=== PATIENT | male | born 1950 ===

== ENCOUNTER 2017-05-14 08:02 | Day surgery (SDC) | payer MEDICARE, OTHER ==
[2017-05-11 10:46] VITALS: BMI 30.5
--- NOTE | 2017-05-13 20:44 | HP ---
DATE: 05/13/2017 REASON FOR ADMISSION: Left heart cath, possible angioplasty, abnormal stress with chest pain. BRIEF CLINICAL HISTORY: This is a 66-year-old male with past medical history significant for atrial fibrillation status post radiofrequency ablation failed, complaining of chest pain, dyspnea on exertion. The patient underwent stress test that was abnormal, so the patient is scheduled elective cardiac cath, possible angioplasty. PAST MEDICAL HISTORY: Significant for hypothyroidism, obesity, atrial fibrillation, status post radiofrequency ablation failed, the patient reverted back to atrial fibrillation. CURRENT MEDICATION: The patient is taking levothyroxine 50 mg daily, vitamin D, atorvastatin 10 mg daily, apixaban 2.5 mg daily, nitroglycerin, and cyanocobalamin. RECENT CARDIAC WORKUP: As follows. The patient had echocardiography done does show no PE, no vegetation, no thrombus, ejection fraction 35% to 40%, 4-chamber dilatation consistent with CMP, mild mitral regurgitation, [id number] tricuspid regurgitation, systolic pressure 58 mmHg. The patient had a stress test dated 04/19/2017, that showed small reversible ischemia anteroseptal ejection fraction 50%. REVIEW OF SYSTEMS: As per HPI. PHYSICAL EXAMINATION VITAL SIGNS: Height of the patient is 6 feet, weight of the patient is 225 pounds, body mass 30.4 kg/m2. Temperature afebrile, heart rate 80, blood pressure 130/88. HEENT: PERRLA intact. NECK: Supple. No carotid bruit or thyromegaly. CHEST: Clear to auscultation. HEART: S1 and S2 regular. ABDOMEN: Soft. EXTREMITIES: Clubbing and cyanosis negative. IMPRESSION: Atrial fibrillation, abnormal stress test, mitral regurgitation, cardiomyopathy, 4-chamber dilatation, anterior wall ischemia, mild mitral regurgitation, [id number] tricuspid regurgitation, pulmonary hypertension and right ventricular systolic pressure 56. RECOMMENDATION: cardiac catheterization. Risks, benefits, and alternative discussed with the patient. The patient agreed to proceed with cardiac catheterization. Further recommendation after cardiac catheterization. We will load aspirin and Plavix. If the blood work is within normal limits, we will proceed for cardiac catheterization. Nadia Cormier MD [facility] # [phone]
[2017-05-14 08:33] LABS: BASO # 0.04 K/mm3 (0.0-2.0); BASO % 0.6 % (0.0-3.0); EOS # 0.2 (0.0-0.7); GRAN # 3.9 (1.4-6.5); GRAN % 58.9 % (50.0-68.0); HEMATOCRIT 37.3 % (42.0-52.0); LYMPH # 1.9 (1.2-3.4); MEAN CELL VOLUME 93.7 fl (80.0-105.0); MEAN CORPUSCULAR HEMOGLOBIN 30.9 pg (25.0-35.0); MEAN PLATELET VOLUME 10.8 fl (7.0-11.0); MONO # 0.6 (0.1-0.6); MONO % 8.5 % (1.0-6.0); RED CELL DISTRIBUTION WIDTH 14.8 % (11.5-14.5); WHITE BLOOD COUNT 6.6 10^3/ul (4.5-11.0)
[2017-05-14] MEDS ORDERED: Lidocaine 2% Inj (20ml) ONE (08:40)
[2017-05-14 08:41] LABS: CALCIUM 7.9 mg/dL (8.4-10.5); POTASSIUM 4.1 mmol/L (3.6-5.0)
[2017-05-14] MEDS ORDERED: Midazolam 2 MG/2 ML VIAL ONE ×2 (08:41→09:02)
[2017-05-14] MEDS ORDERED: Iodixanol 320 MG/ML 200 ML BOTTLE IV ONE (08:42)
[2017-05-14] MEDS ORDERED: Nitroglycerin 50mg in D5W 50 MG/250 ML BOTTLE IV ONE (08:42)
[2017-05-14] MEDS ORDERED: Iohexol 350mgl/ml 50 ML ONE (08:42)
[2017-05-14 08:53] LABS: INR 1.2 (0.93-1.08); PARTIAL THROMBOPLASTIN TIME 37.8 Seconds (25.1-36.5)
[2017-05-14] MEDS ORDERED: Sodium Bicarbonate (8.4%) 50 Meq Syringe ONE (09:18)
[2017-05-14] MEDS ORDERED: Acetylcysteine 20% Inhal Sol (30ml) ONE (09:18)
[2017-05-14 11:07] VITALS: TEMP 97.6
[2017-05-14] MEDS ORDERED: Sodium Bicarbonate 8.4% 130 MEQ in Sodium Chloride 0.45% 1,000 ML IV SCH (11:15)
[2017-05-14 12:46] VITALS: O2SAT 98
[2017-05-14 13:17] VITALS: RESP 16
[2017-05-14 13:18] VITALS: BP 139/73; PULSE 60
[2017-05-14 16:37] LABS: CALCIUM 7.6 mg/dL (8.4-10.5); POTASSIUM 3.9 mmol/L (3.6-5.0)
--- NOTE | 2017-05-14 18:24 | CARD ---
APPROVED REPORT Procedure(s) performed: Left Heart Catheterization HISTORY The patient is a 66 year-old male with a history of : previous NV (> 7 days), most recent EF: 50%. (EF Method: RADIONUCLIDE), previous CHF, renal failure without dialysis, diabetes mellitus with diet treatment , previous diagnostic cath, previous PCI (The PCI date was 06/25/2011), dyslipidemia , CKD with base line creatinine around 2.8, [place] and Hx of Ch. afib on anticoagulation.. INDICATION The indication(s) include : positive stress test. CASE TECHNIQUE The patient was brought electively to the Cardiac Catheterization Laboratory in a fasting state and was prepped and draped in a sterile manner. The right femoral groin was infiltrated with 2% Lidocaine subcutaneous anesthesia. A 6 Fr x 11 cm Dee Dee sheath was inserted into the right femoral artery without difficulty. Coronary angiography was performed using coronary diagnostic catheters. The left coronary system was accessed and visualized with a Diagnostic ,5 Fr JL 4 catheter. The right coronary system was accessed and visualized with a Diagnostic ,5 Fr JR 4 catheter. The left ventricle was accessed and visualized with a 5 Fr Pigtail 145 (Angled) catheter. Left ventricular/Aortic Valve gradient assessed on pullback. Left ventriculogram was performed in COOK projection. Closure device was deployed with a 6 Fr / 7 Fr MynxGrip without any complications. The patient tolerated the procedure well and there were no complications associated with the procedure. Vessel Analysis The patient's coronary anatomy is right dominant. The left main coronary artery is a medium size vessel with diffuse calcification noted throughout this vessel and without significant stenosis. The left main bifurcates to the left anterior descending and circumflex. The left anterior descending artery is a medium size vessel with diffuse calcification noted throughout this vessel and with significant stenosis. There is a 100% stenosis in the mid segment. 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 The circumflex artery is a medium size vessel with diffuse calcification noted throughout this vessel and without significant stenosis. Distal Circumflex is diffusely diseased The first obtuse marginal branch is a small size vessel with diffuse calcification noted throughout this vessel and without significant stenosis. The right coronary artery is a large size vessel with diffuse calcification noted throughout this vessel and without significant stenosis. The right posterior descending artery is a medium size vessel with diffuse calcification noted throughout this vessel and without significant stenosis. Diffusely diseased Left Ventricle The left ventricle is Borderline in size with mildly decreased contractility. Ischemic cardiomyopathy. The left ventricular ejection fraction is estimated to be 40-45%. The left ventricular end diastolic pressure is 18-20 mmHg. There was no gradient across the aortic valve upon pullback. 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 Ef-40-45%, EDP-18-20 mmof hg. CKD, Ch. A fib Only 20 cc contrast used Recommendations Aggressive Medical TherapyCardiac Risk Reduction Program Weight Loss Reduction Program Monitor renal Fx post cath, IV hydration with Bicarb for 6-9 hours post cath. BMP before goes home and in one week Monitor Lv Fx closely to assess Need for AICD, if EF remains < 35%. resume anticoagulation tomorrow. CC; Drs. Castro/ Etta grady.
--- NOTE | 2017-05-15 09:44 | CARD ---
APPROVED REPORT EKG Measurement Heart [id number] <Conclusion> Atrial fibrillation with slow ventricular response Right bundle branch block Left anterior fascicular block Bifascicular block Septal infarct, age undetermined No change except the rate is slower
== END 2017-05-14 17:30 | disposition home or self-care (01) ==
LOC: CATH 08:02
PROVIDERS: ATTEND Internal Medicine Cardiovascular Disease
DX: I25.10 Atherosclerotic heart disease of native coronary artery without angina pectoris (principal); I25.2 Old myocardial infarction; I25.5 Ischemic cardiomyopathy; I45.10 Unspecified right bundle-branch block; I48.2 Chronic atrial fibrillation; I50.9 Heart failure, unspecified; N18.9 Chronic kidney disease, unspecified; Z79.01 Long term (current) use of anticoagulants; Z98.61 Coronary angioplasty status; R94.39 Abnormal result of other cardiovascular function study; E03.9 Hypothyroidism, unspecified; E66.9 Obesity, unspecified; I08.1 Rheumatic disorders of both mitral and tricuspid valves; I27.20 Pulmonary hypertension, unspecified; E11.22 Type 2 diabetes mellitus with diabetic chronic kidney disease; E78.5 Hyperlipidemia, unspecified; Z68.30 Body mass index [BMI] 30.0-30.9, adult
CPT/HCPCS: 36415; 80048; 80061; 85025; 85610; 85730; 86850; 86900; 93005; 93458; 99152; C1760; C1887; C2629; J1644 ×2; J2250; J3010; J7030